=== PATIENT | male | born 1940 | race Caucasian/White ===

== ENCOUNTER 2016-08-20 16:29 | Emergency (ER) | payer MEDICARE ==
[~2016-08-20 16:29] MED LIST: ALLEGRA PO; ALLEGRA180 MG PO; ALLEGRA60 MG PO; ALLERGY RELIEF180 MG PO; ALPRAZOLAM PO; ASPIRIN81 M1 PO; ASPIRIN81 M2 PO; AZOR 10-40 MG1 UDTAB PO; AZOR 10/40 MG T1 TAB PO; AZOR 5-20 MG T1 EACH; AZOR 5/40 MG TA1 TAB PO; CALAN SR PO; CORDARONE200 M1 PO; COUMADIN2.5 MG PO; DICLOFENAC PO; DOCU SOFT100 M1 PO; ELIQUIS5 MG PO; FEXOFENADINE HC60 MG PO; LIDODERM30 EA TOP; METAMUCIL1 PKT PO; MULTI-DAY1 TAB PO; MULTIVITAMIN1 UDCAP PO; NEXIUM PO; STOOL SOFTENER100 M1 PO; VASOTEC PO; ZOFRAN PO
== END 2016-08-20 18:48 | disposition home or self-care (01) ==
LOC: CED 16:29
DX: L03.114 Cellulitis of left upper limb (principal)
CPT/HCPCS: 99283